=== PATIENT | male | born 1930 | race Caucasian/White ===

== ENCOUNTER 2017-05-26 12:59 | Outpatient (CLI) | payer MEDICARE ==
[2017-05-26 14:36] LABS: #Eosinphils 0.1 thou/uL (0.0-0.7); #Lymphocytes 1.5 thou/uL (1.20-3.40); #Monocytes 0.6 thou/uL (0.11-0.59); #Neutrophils 4.8 thou/uL (1.40-6.50); %Basophils 0.2 % (0.0-1.0); %Eosinophils 1.3 % (0.0-10.0); %Lymphocytes 21.4 % (21.0-51.0); %Monocytes 8.9 % (0.0-10.0); Hematocrit 42.1 % (42.0-52.0); Mean Platelet Volume 8.5 fL (7.4-10.4); Red Blood Cell (RBC) Count 4.48 mill/uL (4.70-6.10); White Blood Cell (WBC) Count 7.1 thou/uL (4.8-10.8)
[2017-05-26 15:08] LABS: Anion Gap 11 mmol/L (10-20); BUN (Urea Nitrogen) 40 mg/dL (8.4-25.7); Calc. Creatinine Clearance 0 mL/min (70-130); Calcium 9.5 mg/dL (7.8-10.44); Carbon Dioxide 29 mmol/L (23-31); Chloride 102 mmol/L (98-107); Estimated GFR-MDRD 21
== END 2017-05-26 13:00 | disposition home or self-care (01) ==
LOC: LABBT 12:59
PROVIDERS: ATTEND Orthopaedic Surgery Hand Surgery
DX: Z01.818 Encounter for other preprocedural examination (principal); T81.89XA Other complications of procedures, not elsewhere classified, initial encounter
CPT/HCPCS: 80048; 85025; 85652; 93005; 93010

== ENCOUNTER 2017-06-02 11:38 | Day surgery (SDC) | payer MEDICARE ==
[2017-05-26 13:12] VITALS: BMI 31.6
[2017-06-02] MEDS ORDERED: CEFAZOLIN/Water 2 GM/20 ML SYRINGE ONE (14:06)
[2017-06-02] MEDS ORDERED: Sodium Chloride 0.9% 10 ML ONE (15:11)
[2017-06-02] MEDS ORDERED: Thrombin 5000 UNITS/5 ML VIAL ONE (15:11)
[2017-06-02] MEDS ORDERED: Bupivacaine PF 0.5% 30 ML VIAL ONE (15:11)
[2017-06-02] MEDS ORDERED: Bacitracin Zinc Ointment 30 gm TUBE ONE (15:11)
[2017-06-02] MEDS ORDERED: Fentanyl 100 MCG/2 ML VIAL ONE (15:41)
[2017-06-02] MEDS ORDERED: PROPOFOL 200 MG/20 ML VIAL ONE (16:38)
[2017-06-02] MEDS ORDERED: Lidocaine 1% PF 5 ML VIAL ONE (16:38)
[2017-06-02] MEDS ORDERED: ePHEDrine/0.9% NaCl/PF SYRINGE 50 mg/10 ml ONE (16:38)
[2017-06-02] MEDS ORDERED: Ondansetron HCl/PF 4 MG/2 ML Vial ONE (16:38)
[2017-06-02] MEDS ORDERED: Glycopyrrolate 0.2 MG/ML 5 ML SYRINGE ONE (16:38)
--- NOTE | 2017-06-03 07:12 | OP ---
PREOPERATIVE DIAGNOSIS: Left index finger 2.0 cm wound, nonhealing, greater than 1 month old with hi story of circulatory dysfunction. POSTOPERATIVE DIAGNOSIS: Wound without infection, nonhealing 2 cm with a 1.5 mm wound separation and some necrotic fat in the interspace. PROCEDURES PERFORMED: Wound debridement, 03124 CPT; and wound closure of the hand or digit 2 cm or l ess, 32038 CPT. SPECIMEN: None. ESTIMATED BLOOD LOSS: 5 mL. TOURNIQUET TIME: None. No gross infection and bleeding edges were found both sides of the laceratio n at the end of procedure. SURGEON: Car Quintana M.D. ANESTHESIA: General LMA technique augmented by 8 mL, metacarpophalangeal block, double Marcaine, no epinephrine. INDICATIONS: The patient with nonhealing wound and history of circulatory dysfunction on chronic blo od thinner. DESCRIPTION OF THE PROCEDURE: The patient had been off the blood thinner for 4 days as described. Charo vazquez was counseled along with his for possible skin graft of this flap to be nonviable and explored . We then had the limb prepped and draped, did not inflate the tourniquet. We then performed system atic debridement of first proximal wound edges of our 1 mm and 0.5 mm resection of the distal wound e dges undermined both ulna slightly and then we had copious bleeding at all points, irrigated and bega n closure. A 4-0 nylon was used in a simple pattern with the palmar, proximal aspect brought to the palmar, distal aspect using the oversew technique. Then, once this was done, all cut tied and clippe d the wound with excellent approximation with excellent bleeding. We then covered the wound with ra itracin, Adaptic, 4 x 4, and a Keyona underneath Coban 2 inch. He left the operating room without com plications.
== END 2017-06-02 18:16 | disposition home or self-care (01) ==
LOC: SDC 11:38
PROVIDERS: ATTEND Orthopaedic Surgery Hand Surgery
PROC: 0JDK0ZZ Extraction of Left Hand Subcutaneous Tissue and Fascia, Open Approach (ICD-10-PCS; principal; 2017-06-02)
PROC: 0JQK0ZZ Repair Left Hand Subcutaneous Tissue and Fascia, Open Approach (ICD-10-PCS; 2017-06-02)
DX: S61.201A Unspecified open wound of left index finger without damage to nail, initial encounter (principal); E78.00 Pure hypercholesterolemia, unspecified; E11.42 Type 2 diabetes mellitus with diabetic polyneuropathy; Z88.2 Allergy status to sulfonamides; Z88.1 Allergy status to other antibiotic agents; Z91.041 Radiographic dye allergy status; Z91.048 Other nonmedicinal substance allergy status; Z90.79 Acquired absence of other genital organ(s); Z98.890 Other specified postprocedural states
CPT/HCPCS: A4216; J2001; J2405; J2704; J3010; J3490; S0020

== ENCOUNTER 2018-09-20 12:44 | Outpatient (CLI) | payer MEDICARE ==
--- NOTE | 2018-09-20 13:07 | RAD ---
EXAM: Two views chest PROVIDED CLINICAL HISTORY: Pacemaker lead malfunction. COMPARISON: 07/01/2018 FINDINGS: A triple lead left subclavian cardiac pacemaker device remains in place. Cardiac silhouette remains m ildly enlarged. The pulmonary vasculature is within normal limits. There is mild atelectasis at the left lung base. The lungs are otherwise clear. Vascular calcifications are again seen in the thoracic aorta. Degenerative changes are noted in the spine. IMPRESSION: 1. Stable chest without evidence of an acute cardiopulmonary process. 2. Mild cardiomegaly.
== END 2018-09-20 12:45 | disposition home or self-care (01) ==
LOC: RAD 12:44
PROVIDERS: ATTEND Internal Medicine Cardiovascular Disease
DX: T82.110A Breakdown (mechanical) of cardiac electrode, initial encounter (principal); I51.7 Cardiomegaly
CPT/HCPCS: 71046

== ENCOUNTER 2018-10-18 05:52 | Day surgery (SDC) | payer MEDICARE ==
[2018-10-17 14:24] VITALS: BMI 28.2
[2018-10-18] MEDS ORDERED: Lidocaine 1% (PF) 30 ML VIAL ONE (06:42)
[2018-10-18] MEDS ORDERED: CEFAZOLIN 1 GM VIAL ONE (06:42)
[2018-10-18] MEDS ORDERED: Gentamicin 80 MG/2 ML VIAL ONE (06:44)
--- NOTE | 2018-10-18 10:07 | RAD ---
EXAM: CHEST ONE VIEW HISTORY: Pacemaker lead malfunction COMPARISON: 09/20/2018 FINDINGS: A dual lead left subclavian cardiac pacemaker device remains in place. There is a third left subclavi an pacemaking lead which is not connected to the pacemaker device, but this is unchanged when compared to prior study as well as study on 07/01/2018, and this is likely related to revision of the pacemaking device when compared to prior study in 2014 where there were only 2 left subclavian leads present. The heart remains mildly enlarged. There is atelectasis at the left lung base. The lungs otherwise appear clear. Degenerative changes ar e again seen in the spine. Vascular calcifications are seen in the thoracic aorta. IMPRESSION: 1. No acute cardiopulmonary process. 2. Mild cardiomegaly. 3. Left subclavian cardiac pacemaking lead is noted in place which appears to represent a dual-lead l eft subclavian cardiac pacemaking device with a third left subclavian cardiac pacemaking lead noted in place which is not connected to the pacemaking device.
--- NOTE | 2018-10-18 16:48 | CCL ---
DATE OF PROCEDUR: 10/18/18 INDICATION FOR PROCEDURE: 88-year-old patient with a history of pacemaker insertion due to sick sinus syndrome with bradycardia . He was found to have on routine pacemaker evaluation, high thresholds on the ventricular lead and w as advised to undergo a pacemaker lead revision. He was taken to the cardiac clinical laboratory science professor where he was pr epped and draped in a sterile fashion. The old lead was removed and then a new lead was implanted usi ng a modified Seldinger technique without any difficulties or complications. The same pacemaker was u sed. The new lead was reattached to the pacemaker and the pacemaker with the new lead was placed back into the pocket. The old lead had been used during the procedure to ensure that there was at least s ome capture on the right ventricle. This also had high thresholds in the past. This was used with hig h outputs and was obtained and then afterwards was recapped and placed back into the pocket. IMPRESSION: Pacemaker lead malfunction with old lead removal and new lead implant. There were no difficulties or complications encountered.
--- NOTE | 2018-10-18 16:55 | EKG ---
Test Reason : LEAD REVISION Blood Pressure : / mmHG Vent. Rate : 060 BPM Atrial Rate : 059 BPM P-R Int : 000 ms QRS Dur : 202 ms QT Int : 494 ms P-R-T Axes : 000 -80 084 degrees QTc Int : 494 ms Electronic ventricular pacemaker When compared with ECG of 26-MAY-2017 14:06, Previous ECG has undetermined rhythm, needs review Confirmed by DR. Carmela EDMONDSON ([id number]) on 10/18/2018 4:54:37 PM Referred By: JUAN JOSE Confirmed By:DR. Carmela EDMONDSON
--- NOTE | 2018-10-19 03:04 | DIS ---
DATE OF ADMISSION: 10/18/2018 DATE OF DISCHARGE: 10/18/2018 DATE OF OUTPATIENT PROCEDURE: 10/18/2018. INDICATION FOR ADMISSION: He was not admitted, but seen as an outpatient. This is an 88-year-old patient who underwent pacemaker insertion in the past due to sick sinus syndrome, had been checked on a routine basis, was found to have increased thresholds on the RV lead, was advised to undergo lead revision. He was taken to the brush clearing laborer where this was performed today. OTHER DIAGNOSES: Include, intermittent atrial fibrillation, sick sinus syndrome, chronic kidney disease, venous insufficiency, noninsulin dependent diabetes type 2, hyperlipidemia, hypertension, sleep apnea, nephrolithiasis, peripheral neuropathy. He has had a history of pericarditis. He has a diastolic dysfunction, but has a normal left ventricular systolic function. He is status post pacemaker insertion. DISCHARGE DIAGNOSES: Include, intermittent atrial fibrillation, sick sinus syndrome, chronic kidney disease, venous insufficiency, noninsulin dependent diabetes type 2, hyperlipidemia, hypertension, sleep apnea, nephrolithiasis, peripheral neuropathy. He has had a history of pericarditis. He has a diastolic dysfunction, but has a normal left ventricular systolic function. He is status post pacemaker insertion. PROCEDURE IN HOSPITAL: Included right ventricular lead revision. The old lead was removed. The new lead was implanted. This the second right ventricular lead revision in this patient, but at least the last lead that was placed earlier this year in June was removed without difficulties or complications. The old lead was then again recapped. We had used this during the procedure in order to prevent severe bradycardia. The original old right ventricular lead also had increased thresholds in the past and had required high output. However, we were able to successfully use this during the procedure while we implanted a new right ventricular lead. DISCHARGE MEDICATIONS: Same as his admission medications: 1. Amlodipine 5 mg 1 and 1/2 tablets daily. 2. Hydrocodone/acetaminophen as needed. 3. Hydrochlorothiazide 25 mg twice daily. 4. Sertraline 100 mg daily. 5. Coreg 25 mg b.i.d. 6. CoQ10 100 mg tablets 1 daily. 7. Eliquis 2.5 mg b.i.d. 8. Flomax 0.4 mg 2 tablets daily half an hour following the same meal. 9. Hydralazine 25 mg four times a day. 10. Lasix 40 mg daily at least 4 to 5 days a week. 11. Align 4 mg capsules as directed orally. FOLLOWUP: Will be with me in the next 7-10 days for a wound check. HOSPITAL COURSE: As noted above, the patient presented for routine pacemaker evaluation, was found to have increased thresholds in the RV lead. He was advised to undergo right ventricular lead revision. This was performed today without difficulties or complications. The old lead was removed and a new lead was implanted without difficulties or complications. In the next 2-3 hours, if the patient remains stable and chest x-ray is unremarkable, the patient will be discharged to home. Job ID: [id number]
== END 2018-10-18 12:16 | disposition home or self-care (01) ==
LOC: CCL 05:52
PROVIDERS: ATTEND Internal Medicine Cardiovascular Disease
PROC: 02WA3MZ Revision of Cardiac Lead in Heart, Percutaneous Approach (ICD-10-PCS; principal; 2018-10-18)
PROC: 0JPT0PZ Removal of Cardiac Rhythm Related Device from Trunk Subcutaneous Tissue and Fascia, Open Approach (ICD-10-PCS; 2018-10-18)
PROC: 0JH604Z Insertion of Pacemaker, Single Chamber into Chest Subcutaneous Tissue and Fascia, Open Approach (ICD-10-PCS; 2018-10-18)
DX: T82.110A Breakdown (mechanical) of cardiac electrode, initial encounter (principal); I12.9 Hypertensive chronic kidney disease with stage 1 through stage 4 chronic kidney disease, or unspecified chronic kidney disease; N18.9 Chronic kidney disease, unspecified; E11.22 Type 2 diabetes mellitus with diabetic chronic kidney disease; I48.2 Chronic atrial fibrillation; E78.5 Hyperlipidemia, unspecified; G47.30 Sleep apnea, unspecified; E11.42 Type 2 diabetes mellitus with diabetic polyneuropathy; Z79.01 Long term (current) use of anticoagulants; Z79.899 Other long term (current) drug therapy; Z87.891 Personal history of nicotine dependence
CPT/HCPCS: 33217; 33235; 71045; 93005; 93010; C1898; J0690; J1580; J2001

== ENCOUNTER → 2018-12-06 | Day surgery (SDC) | payer MEDICARE ==
[2018-12-05 14:38] VITALS: BMI 28.7
[~2018-12-06] MED LIST: Lidocaine Viscous Sol 2% 15 ml UD Cup ONE; PROPOFOL 20 ML ONE
--- NOTE | 2018-12-06 15:05 | OP ---
CARDIOVERSION: DATE OF PROCEDURE: 12/06/18 INDICATION FOR PROCEDURE: This is an 88-year-old patient with atrial fibrillation who underwent a transesophageal echocardiogra m to rule out evidence of intracardiac thrombi, mass or vegetation. There were no evidence of abnorma lities noted on the echocardiogram except for the atrial fibrillation. After he had been given short acting propofol following the transesophageal echocardiogram, we procee ded with the electrical cardioversion using one attempt at 200 joules. He was successfully converted back to normal sinus rhythm. 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 At the end of the procedure, he had atrial pacing and ventricular pacing 100%. There were no difficulties or compli cations encountered during the procedure.
--- NOTE | 2018-12-06 15:06 | ECHO ---
DATE OF PROCEDURE: 12/06/18 INDICATION FOR PROCEDURE: This is an 88-year-old gentleman who has undergone pacemaker insertion. I do not believe he has undergone atrial fibrillation ablation in the past. He has been started on Amiodarone for antiarrhythmic medication and was advised to undergo a transesophageal echocardiogram to rule out evidence of intracardiac thrombi, mass, or vegetations in the left atrial appendage and then to proceed with electrical cardioversion of the atrial fibrillation back to normal sinus rhythm. He was taken to the recovery area where he underwent short acting propofol anesthesia and the transesophageal probe was easily passed down the distal esophagus. There was no evidence of left atrial or left atrial appendage thrombus. The ejection fraction is estimated at 50%. The left atrium was dilated at 4.8 cm. There was moderate mitral valve regurgitation. There was mild tricuspid valve regurgitation and also mild aortic valve regurgitation. pacemaker leads noted in the right chambers. There were no other abnormalities noted. IMPRESSION: Normal left ventricular systolic function. Left atrial dilatation. No evidence of left atrial or left atrial appendage thrombus. Moderate mitral valve regurgitation. Mild tricuspid valve regurgitation. Mild aortic valve regurgitation. MTDD
== END ==
LOC: CCL 06:37
PROVIDERS: ATTEND Internal Medicine Cardiovascular Disease
PROC: B245ZZ4 Ultrasonography of Left Heart, Transesophageal (ICD-10-PCS; principal; 2018-12-06)
PROC: 5A2204Z Restoration of Cardiac Rhythm, Single (ICD-10-PCS; 2018-12-06)
DX: I48.0 Paroxysmal atrial fibrillation (principal); I08.3 Combined rheumatic disorders of mitral, aortic and tricuspid valves; I12.9 Hypertensive chronic kidney disease with stage 1 through stage 4 chronic kidney disease, or unspecified chronic kidney disease; E11.22 Type 2 diabetes mellitus with diabetic chronic kidney disease; N18.9 Chronic kidney disease, unspecified; E11.42 Type 2 diabetes mellitus with diabetic polyneuropathy; E78.5 Hyperlipidemia, unspecified; T82.110A Breakdown (mechanical) of cardiac electrode, initial encounter; R60.0 Localized edema; G47.30 Sleep apnea, unspecified; Z95.0 Presence of cardiac pacemaker; Z87.891 Personal history of nicotine dependence; Z91.048 Other nonmedicinal substance allergy status; Z88.2 Allergy status to sulfonamides; Z88.1 Allergy status to other antibiotic agents; Z91.041 Radiographic dye allergy status; Z79.01 Long term (current) use of anticoagulants; Z79.899 Other long term (current) drug therapy
CPT/HCPCS: 92960; 93005; 93010; 93312; J2704

== ENCOUNTER 2019-02-06 11:46 | Inpatient (IN) | payer MEDICARE ==
[2019-02-06 13:23] LABS: #Basophils 0.1 thou/uL (0.0-0.2); #Eosinphils 0.8 thou/uL (0.0-0.7); #Lymphocytes 1.7 thou/uL (1.20-3.40); #Neutrophils 5.3 thou/uL (1.40-6.50); %Lymphocytes 19.1 % (21.0-51.0); %Monocytes 11.3 % (0.0-10.0); %Neutrophils 59.6 % (42.0-75.0); Hemoglobin 13.1 g/dL (14.0-18.0); Mean Corpuscular HGB CONC 35.4 g/dL (32.0-36.0); Mean Corpuscular Hemoglobin 33.1 pg (27.0-31.0); Mean Corpuscular Volume 93.3 fL (78.0-98.0); Mean Platelet Volume 7.8 fL (7.4-10.4); Platelet Count 142 thou/uL (130-400); RBC Distribution Width 12.2 % (11.5-14.5); Red Blood Cell (RBC) Count 3.97 mill/uL (4.70-6.10); White Blood Cell (WBC) Count 8.9 thou/uL (4.8-10.8)
[2019-02-06 13:43] LABS: ALT (SGPT) 24 U/L (8-55); AST (SGOT) 22 U/L (5-34); Albumin 4.6 g/dL (3.4-4.8); Alkaline Phosphatase 53 U/L (40-150); Anion Gap 17 mmol/L (10-20); BUN (Urea Nitrogen) 69 mg/dL (8.4-25.7); Bilirubin, Total 0.4 mg/dL (0.2-1.2); Calc. Creatinine Clearance 13 mL/min (70-130); Carbon Dioxide 27 mmol/L (23-31); Chloride 101 mmol/L (98-107); Estimated GFR-MDRD 12; Globulin 3.3 g/dL (2.4-3.5); Glucose 85 mg/dL (83-110); Magnesium 2.5 mg/dL (1.6-2.6); Phosphorus 4.5 mg/dL (2.3-4.7); Potassium 3.2 mmol/L (3.5-5.1); Protein, Total 7.9 g/dL (5.8-8.1); Sodium 142 mmol/L (136-145)
[2019-02-06 13:56] LABS: Bacteria/HPF None Seen HPF (None Seen); Bilirubin Negative (Negative); Blood, Urine Trace (Negative); Clarity Clear (Clear); Glucose, Urine (Dipstick) 50 mg/dL (Negative); Leukocyte Negative Leu/uL (Negative); Nitrite Negative (Negative); Protein, Urine (Dipstick) 70 mg/dL (Neg-Trace); RBC/HPF 0-3 HPF (0-3); Squamous Epithelial None Seen HPF (0-3); Urobilinogen Normal mg/dL (Less than 2); WBC/HPF 0-3 HPF (0-3)
[2019-02-06 14:01] LABS: HIV (1/2) Antibody/Antigen Non-Reactive (NonReactive); HIV 1/2 INDEX 0.07 S/CO (<1.00); Hep C IgG Ab Non-Reactive (NonReactive); Hep C Index 0.11 S/CO (0-0.79)
[2019-02-06] MEDS ORDERED: [UNRECOGNIZED DRUG - REMARK] PO PRN (17:05)
[2019-02-06] MEDS ORDERED: CEFAZOLIN 2 GM in Premix Bag 1 BAG IVPB SCH (17:15)
--- NOTE | 2019-02-06 19:56 | ULT ---
ULTRASOUND VESSEL MAPPING FOR DIALYSIS ACCESS: History: ESRD VEIN MAPPING OF UPPER EXTREMITIES FOR DIALYSIS ACCESS: RIGHT UPPER EXTREMITY BRACHIAL ARTERY: 5.5 mm RADIAL ARTERY: 2.1 mm ULNAR ARTERY: 1.9 mm CEPHALIC VEIN Proximal Arm: 2.1 mm Mid Arm: 1.5 mm Distal Arm: 1.1 mm Antecubital Fossa: 1.4 mm Proximal Forearm: 1.6 mm Mid Forearm: 1.1 mm Distal Forearm: 2.1 mm BASILIC VEIN Proximal Arm: 2.3 mm Mid Arm: 2.1 mm Distal Arm: 1.2 mm Antecubital Fossa: 1.3 mm Proximal Forearm: 1.1 mm Mid Forearm: 0.9 mm Distal Forearm: 1.1 mm LEFT UPPER EXTREMITY BRACHIAL ARTERY: 5.2 mm RADIAL ARTERY: 2.3 mm ULNAR ARTERY: 1.5 mm CEPHALIC VEIN Proximal Arm: 2.4 mm Mid Arm: 2.6 mm Distal Arm: 2.0 mm Antecubital Fossa: 2.2 mm Proximal Forearm: 1.3 mm Mid Forearm: 2.0 mm Distal Forearm: 0.6 mm BASILIC VEIN Proximal Arm: 4.8 mm Mid Arm: 1.7 mm Distal Arm: 2.2 mm Antecubital Fossa: 1.1 mm Proximal Forearm: 1.2 mm Mid Forearm: 1.3 mm Distal Forearm: 1.2 mm POS: RRE
[2019-02-06] MEDS: Ubidecarenone 50 MG CAP PO SCH (20:29)
[2019-02-06] MEDS: Amlodipine 5 MG TAB PO SCH (20:30)
[2019-02-06] MEDS: Tamsulosin HCl 0.4 MG CAP PO SCH (20:30)
[2019-02-06] MEDS: Carvedilol 25 MG TAB PO SCH (20:30)
[2019-02-06] MEDS ORDERED: Tuberculin PPD 0.1 ML VIAL I-DERMAL SCH (20:45)
[2019-02-06] MEDS: (Inulin/Chromium Picolinate [Fiber Gummies] 1 EACH) PO SCH (21:18)
--- NOTE | 2019-02-06 23:01 | CON ---
DATE OF CONSULTATION: 02/06/2019 PRIMARY CARE PROVIDER: Dr. Belén Hubbard. PRIMARY SUPERVISOR ROLLING ROOM: Dr. Stanley Alejandro. CHIEF COMPLAINT: End-stage renal disease. REASON FOR CONSULTATION: Medical management and end-stage renal disease. HISTORY OF PRESENT ILLNESS: This is an 89-year-old male, who was referred to [facility] Emergency Department by his primary assembly line worker Dr. Alejandro for initiation of hemodialysis in the context of chronic kidney disease stage 5. The patient with longstanding chronic kidney disease, apparently worsening over the last several months, necessitating initiation of hemodialysis. The patient states he has been followed consistently however with medication adjustment and serial monitoring, the patient's renal function continued to decline. The patient does state that he underwent a transesophageal echocardiogram and electrical cardioversion in December 2018 for recurrent atrial fibrillation. The patient denies any specific chest pain, shortness of breath, or dizziness, but does state some increased edema of his lower extremities and abdomen area. PAST MEDICAL HISTORY: 1. Sick sinus syndrome, status post pacemaker placement. 2. Chronic atrial fibrillation, status post cardioversion on 12/2018 on chronic anticoagulation with Eliquis. 3. Chronic kidney disease stage 5. 4. Bilateral lower extremity venous insufficiency. 5. Hyperlipidemia. 6. Hypertension. 7. Nephrolithiasis. 8. Peripheral neuropathy. 9. History of pericarditis. 10. History of liver abscess status post incision and drainage. 11. Diastolic dysfunction with preserved ejection fraction of 50% to 55% percent. PAST SURGICAL HISTORY: 1. Status post bilateral knee replacement and associated left meniscal repair. 2. Status post thoracentesis. 3. Status post transurethral resection of the prostate. 4. Status post pacemaker and AICD placement. 5. Status post left thumb amputation. 6. Status post hernia repair. CURRENT MEDICATIONS: 1. Amlodipine 10 mg p.o. daily. 2. HCTZ 25 mg p.o. b.i.d. 3. Sertraline 100 mg daily. 4. Coreg 25 mg p.o. b.i.d. 5. Coenzyme Q10 100 mg p.o. daily. 6. Eliquis 2.5 mg p.o. b.i.d. 7. Flomax 0.4 mg 2 capsules p.o. daily. 8. Hydralazine 25 mg p.o. q.i.d. 9. Lasix 50 mg p.o. daily. 10. Align 4 mg daily. ALLERGIES: BACTRIM. FAMILY HISTORY: No inheritable diseases per patient report. SOCIAL HISTORY: The patient is . Resides in the [place], [place] area. Primary caregiver for his . Functional of all activities of daily living. No current alcohol, tobacco, or illicit drug use. REVIEW OF SYSTEMS: CONSTITUTIONAL: Negative for weight loss or gain, ability to conduct usual activities. SKIN: Negative for rash, itching. EYES: Negative for double vision, pain. ENT/MOUTH: Negative for nose bleeding, neck stiffness, pain, tenderness. CARDIOVASCULAR: Negative for palpitations, dyspnea on exertion, orthopnea. RESPIRATORY: Negative for shortness of breath, wheezing, cough, hemoptysis, fever or night sweats. GASTROINTESTINAL: Negative for poor appetite, abdominal pain, heartburn, nausea, vomiting, constipation, or diarrhea. GENITOURINARY: Negative for urgency, frequency, dysuria, nocturia. MUSCULOSKELETAL: Negative for pain, swelling. NEUROLOGIC/PSYCHIATRIC: Negative for anxiety, depression. ALLERGY/IMMUNOLOGIC: Negative for skin rash, bleeding tendency. Otherwise negative except as stated per HPI. PHYSICAL EXAMINATION: VITAL SIGNS: On admission, blood pressure 157/76, pulse 63, respiratory rate 20, temperature 97.5 degrees Fahrenheit, O2 saturation 99% on room air. GENERAL APPEARANCE: This is an 89-year-old male, alert and oriented x3, pleasant, responsive, in no acute distress. HEENT: Pupils are equal, round, reactive to light and accommodation. Extraocular muscles are intact. No scleral icterus. No conjunctival injection. Nares are patent. OP is clear. Teeth in good repair. NECK: Supple. No cervical adenopathy. No thyromegaly. No carotid bruits. No JVD appreciated. Cervical spine with full active and passive range of motion. No meningeal signs noted. CHEST: Lungs are clear to auscultation bilaterally. CARDIOVASCULAR: S1, S2 with 1 to 2/6 systolic ejection murmur in the left upper sternal border. ABDOMEN: Rounded, soft, nontender, and nondistended. Bowel sounds are positive in all 4 quadrants. There is no hepatosplenomegaly. No abdominal bruits, no rebound or guarding appreciated. EXTREMITIES: Warm and dry with fair turgor. Pitting edema to the lower extremities bilaterally. Pulses palpable distally at the dorsalis pedis, posterior tibial, and popliteal arteries bilaterally. Capillary refill less than 2 seconds. NEUROLOGIC: Cranial nerves 2 through 12 are grossly intact. No focal or lateralizing signs appreciated. PERTINENT LABORATORY AND X-RAY DATA: Sodium 142, potassium 3.2, chloride 101, CO2 of 27, anion gap 17, BUN 69, creatinine 4.69, estimated GFR of 12, glucose 85, calcium 10.0, magnesium 2.5. LFTs within normal limits. CBC showed a white blood cell count of 8.9, hemoglobin 13, hematocrit 37, platelet count 142 with normal differential. Urinalysis showed trace blood and protein. Hepatitis C antibody nonreactive. HIV 1 and 2 antigen antibody nonreactive 02/06/2019. 2D transthoracic echocardiogram dated 12/06/2018, showed ejection fraction of 50%. No evidence for left atrial thrombus. Moderate left atrial enlargement. Moderate mitral and tricuspid valve regurgitation. EKG dated 02/06/2019, by my interpretation shows AV sequential dual chamber pacemaker with heart rates in the 60s. ASSESSMENT/PLAN: 1. End-stage renal disease. The patient will be admitted for initiation of hemodialysis. The patient to have a tunneled hemodialysis catheter placed per General Surgery. Nephrology Service for timing and initiation of hemodialysis. 2. Hypokalemia. We will continue serial potassium monitoring. Replace as clinically indicated. 3. Chronic atrial fibrillation, status post pacemaker placement. Stable currently. Atrioventricular sequential pacing noted on EKG. Continue Eliquis 2.5 mg b.i.d. 4. Anemia of chronic kidney disease. Stable currently. Continue serial hemoglobin and hematocrit monitoring. No current evidence to suggest acute blood loss. 5. Chronic anticoagulation. Continue Eliquis 2.5 mg b.i.d. 6. Prophylaxis. SCDs while in bed. Pepcid 20 mg p.o. b.i.d. CODE STATUS: Full. Surrogate medical decision maker is patient's daughter. Thank you for the consult. We will continue to follow with primary service. Job ID: [id number]
[2019-02-07] MEDS ORDERED: diphenhydrAMINE 25 MG CAP PO SCH (00:45)
[2019-02-07] MEDS: Carvedilol 25 MG TAB PO SCH ×2 (06:05→22:42)
--- NOTE | 2019-02-07 07:31 | CON ---
DATE OF CONSULTATION: HISTORY OF PRESENT ILLNESS: Trey James is an 89-year-old male, independently ambulatory and cares for his own affairs, has chronic kidney disease, followed by Dr. Stanley Alejandro. This has progressed to the point that he needs to initiate dialysis. He has been on Eliquis, held that since Wednesday, 2 days ago. He ate breakfast this morning. Ultrasound vein mapping of both arms has been ordered and is pending. The patient has a history of diabetes and hypertension, although does not take any medications for his diabetes at this time as it is diet controlled. 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 He has been admitted by Dr. Alejandro, waiting to be seen by the hospitalist and plan is to place a hemodialysis catheter in a possible central line tomorrow (poor IV access). The patient has a pacemaker in the left subclavian vein for atrial fibrillation. He is followed by Dr. Jeremiah Naranjo. He has not had a prior history of MT or coronary artery disease. ALLERGIES: ADHESIVES, SULFA, IODONATED CONTRAST IV DYE. MEDICATIONS: Medications at home; supplement for restless legs syndrome, inulin/chromium picolinate, curcumin 1330 mg daily, Align 4 mg daily, testosterone 0.4 mg IM every 7 days, CoQ10, hydralazine p.r.n., Prevagen daily, hydrocodone p.r.n. pain, sertraline 100 mg daily, Eliquis b.i.d., bupropion 100 mg daily, amlodipine 1 tablet b.i.d., Flomax 0.4 mg b.i.d., hydrochlorothiazide 25 mg daily, Klor-Con 10 of 10 mEq daily, carvedilol 25 mg b.i.d., furosemide 40 mg daily, amiodarone 1 tablet daily. PAST SURGICAL HISTORY: The patient has a pacemaker, followed by Dr. Naranjo, has been recently re-evaluated and revised; bilateral total knee replacements by Dr. Contreras; bilateral inguinal hernia repairs; left thumb partial amputation. PAST MEDICAL HISTORY: Diabetes mellitus; hypertension; atrial fibrillation, on anticoagulation; pacemaker; sick sinus syndrome. He has had colonoscopies in the past, last one several years ago. Echocardiogram, 12/06/2018; 50% EF, moderate mitral regurgitation, mild aortic and [id number] tricuspid regurgitation. LABORATORY DATA: White count 8.9, hemoglobin 13. Sodium 142, potassium 3.2, BUN 69, creatinine is 4.69, GFR 12. PHYSICAL EXAMINATION: VITAL SIGNS: Height 5 feet 6 inches, 182 pounds, 25 of BMI, temperature 97.5, heart rate 63, blood pressure 157/76. HEAD, EARS, EYES, NOSE, AND THROAT: Unremarkable. LUNGS: Clear to auscultation. CARDIAC: Regular rate and rhythm without murmur or gallop. ABDOMEN: Soft and nontender. No masses. EXTREMITIES: Unremarkable. Left chest pacemaker. No visibly demonstrative veins in the antecubital area. Good radial and ulnar pulses. ASSESSMENT AND PLAN: 1. End-stage renal disease. Plan placement of hemodialysis catheter, possible central line tomorrow afternoon. N.p.o. after midnight. Hold his Eliquis as he has held in for 48 hours already. Plan placement of hemodialysis catheter, central line, and left right arm arteriovenous fistula pending ultrasound vein mapping. He is right-handed, but he has a pacemaker to the left subclavian vein. His right dominant arm is the most likely site vein mapping. 2. Diabetes mellitus, noninsulin dependent, now diet controlled. 3. Hypertension. 4. Atrial fibrillation, on anticoagulation, held for the last 2 days. Job ID: [id number]
[2019-02-07] MEDS ORDERED: CURCUMIN PO SCH (09:00)
[2019-02-07] MEDS: Hydrochlorothiazide 25 MG TAB PO SCH (09:02)
[2019-02-07] MEDS: Potassium Chloride 10 MEQ TAB PO SCH (09:02)
[2019-02-07] MEDS: Furosemide 40 MG TAB PO SCH (09:02)
[2019-02-07] MEDS: Tamsulosin HCl 0.4 MG CAP PO SCH ×2 (09:02→22:42)
[2019-02-07] MEDS: Bupropion 100 MG SR TAB PO SCH (09:02)
[2019-02-07] MEDS: Amiodarone 200 MG TAB PO SCH (09:03)
[2019-02-07] MEDS: Amlodipine 5 MG TAB PO SCH ×2 (09:03→22:41)
[2019-02-07] MEDS: (Inulin/Chromium Picolinate [Fiber Gummies] 1 EACH) PO SCH ×2 (09:08→22:29)
[2019-02-07] MEDS: (Bifidobacterium Infantis [Align] 4 MG) PO SCH (09:09)
[2019-02-07] MEDS: (Prevagen 1 TAB) PO SCH (09:09)
--- NOTE | 2019-02-07 09:46 | PDOC.HOSPP ---
- Subjective Encounter Date: 02/07/19 Encounter Time: 09:45 Subjective: f/u ESRD with plans for initiating HD this hospital stay. No new complaints, CP , SOB. - Objective Vital Signs & Weight: Vital Signs (12 hours) Temp Pulse Resp BP Pulse Ox 02/07/19 09:03 67 02/07/19 08:13 97.8 F 67 18 150/80 H 98 02/07/19 03:06 98.1 F 77 16 118/70 98 02/06/19 23:20 98.2 F 70 16 136/69 98 Weight Weight 182 lb 15.986 oz I&O: 02/06/19 02/07/19 02/08/19 06:59 06:59 06:59 Intake Total 690 Balance 690 Result Diagrams: 02/06/19 13:08 02/06/19 13:08 Additional Labs: Accuchecks 02/06/19 17:08 POC Glucose 115 H Hospitalist ROS - Medication Medications: Active Medications Generic Name Dose Route Start Last Admin Trade Name Freq PRN Reason Stop Dose Admin Amiodarone HCl 200 mg 02/07/19 09:00 02/07/19 09:03 Cordarone PO 200 mg DAILY HARRISON Administration Amlodipine Besylate 5 mg 02/06/19 21:00 02/07/19 09:03 Norvasc PO 5 mg BID HARRISON Administration Bupropion HCl 100 mg 02/07/19 09:00 02/07/19 09:02 Wellbutrin Sr PO 100 mg DAILY HARRISON Administration Carvedilol 25 mg 02/06/19 21:00 02/07/19 06:05 Coreg PO 25 mg BID HARRISON Administration Coenzyme Q10 100 mg 02/06/19 21:00 02/06/19 20:29 Coenzyme Q10 PO 100 mg QPM HARRISON Administration Furosemide 40 mg 02/07/19 09:00 02/07/19 09:02 Lasix PO 40 mg DAILY HARRISON Administration Hydrochlorothiazide 25 mg 02/07/19 09:00 02/07/19 09:02 Hydrochlorothiazide PO 25 mg DAILY HARRISON Administration (Bifidobacterium 0 mg 02/07/19 09:00 02/07/19 09:09 Infantis [Align] 4 PO 1 mg Mg) DAILY HARRISON Administration (Inulin/Chromium 1 each 02/06/19 21:00 02/07/19 09:08 Picolinate [Fiber PO 1 each Gummies] 1 Each) BID HARRISON Administration (Prevagen 1 Tab) 1 tab 02/07/19 09:00 02/07/19 09:09 PO 1 tab DAILY HARRISON Administration Potassium Chloride 10 meq 02/07/19 09:00 02/07/19 09:02 Klor-Con 10 PO 10 meq DAILY HARRISON Administration Sertraline HCl 100 mg 02/07/19 09:00 02/07/19 09:03 Zoloft PO 100 mg DAILY HARRISON Administration Tamsulosin HCl 0.4 mg 02/06/19 21:00 02/07/19 09:02 Flomax PO 0.4 mg BID HARRISON Administration - Exam General Appearance: NAD, awake alert Eye: PERRL, anicteric sclera ENT: normocephalic atraumatic, no oropharyngeal lesions Neck: supple, symmetric, no JVD, no thyromegaly, no lymphadenopathy Heart: RRR, no gallops, no rubs, normal peripheral pulses Heart - other findings: L upper chest wall with PM in place Respiratory: CTAB, no wheezes, no rales, no ronchi, normal chest expansion Gastrointestinal: soft, non-tender, non-distended, normal bowel sounds, no palpable masses Extremities: no cyanosis, no clubbing Skin: normal turgor, no lesions Neurological: CN's grossly intact, no focal deficits, no new deficit Musculoskeletal: normal tone, normal strength Psychiatric: normal affect, normal behavior, A&O x 3 Hosp A/P (1) ESRD (end stage renal disease) Code(s): N18.6 - END STAGE RENAL DISEASE Status: Chronic Plan: Plan for initiation of HD this hospital stay, HD catheter/AV fistula placement pending, Nephrology following (2) Chronic atrial fibrillation Code(s): I48.2 - CHRONIC ATRIAL FIBRILLATION Status: Chronic Plan: Stable overall, PM in place, anticoagulation held (3) Chronic anticoagulation Code(s): Z79.01 - NURSING HOME (CURRENT) USE OF ANTICOAGULANTS Status: Acute Plan: Eliquis on hold pending HD catheter placement (4) Hypokalemia Code(s): E87.6 - HYPOKALEMIA Status: Acute Plan: Mild, will allow mild hypokalemia given ESRD, await initiation of HD and monitor serially - Plan continue antibiotics, social service assistant, DVT proph w/SCDs Stable currently Plan for HD catheter/AV fistula placement Continue Norvasc, Amiodarone, Coreg Eliquis on hold CM for coordination of outpt HD
[2019-02-07 13:44] LABS: HBSAB Concentration 1.25 mIU/mL; HBSAg Index 0.14 S/CO (0-0.99); Hep B Core Total Ab Non-Reactive (NonReactive); Hep B Core Total Index 0.08 S/CO (0-0.79); Hep B Surf AB Non-Reactive (NonReactive); Hep B Surf Ag Non-Reactive S/CO (NonReactive); Hep C IgG Ab Non-Reactive (NonReactive); Hep C Index 0.11 S/CO (0-0.79)
[2019-02-07] MEDS ORDERED: Midazolam HCl 2 mg/2 ml Vial ONE (13:55)
[2019-02-07] MEDS ORDERED: Fentanyl 100 MCG/2 ML VIAL ONE ×2 (13:55→15:51)
[2019-02-07] MEDS ORDERED: Heparin 10,000 UNITS/1 ML VIAL ONE (15:49)
[2019-02-07] MEDS ORDERED: Bupivacaine HCl 0.5%/Epinephrine 1:200,000/PF 30 ml Vial ONE ×2 (15:49→17:28)
[2019-02-07] MEDS ORDERED: Heparin 5,000 UNITS/ML VIAL ONE (15:49)
[2019-02-07] MEDS ORDERED: Sodium Chloride 0.9% 10 ML ONE (15:49)
[2019-02-07] MEDS ORDERED: Lidocaine 2% PF 5 ML VIAL ONE (15:49)
[2019-02-07] MEDS ORDERED: Ioversol 68 % 50 ML VIAL ONE (15:49)
[2019-02-07] MEDS ORDERED: PROPOFOL 20 ML ONE (15:51)
[2019-02-07] MEDS ORDERED: Acetaminophen 500 MG TAB PO PRN (16:45)
[2019-02-07] MEDS ORDERED: PHENYLEPHRINE-NS 100 MCG/ML 10 ML SYRINGE ONE (17:59)
[2019-02-07] MEDS ORDERED: Heparin 10,000 UNITS/ 10 ML VIAL ONE (17:59)
[2019-02-07] MEDS ORDERED: Protamine Sulfate 50 MG/5 ML VIAL ONE (18:14)
--- NOTE | 2019-02-07 19:21 | RAD ---
CHEST ONE VIEW: 02/07/19 INDICATION: History of central line placement. COMPARISON: Prior exam dated 10/18/18. FINDINGS: There is a right IJ dialysis catheter in place. There is a multilead pacemaker in place. There is a left central venous catheter projecting up to the level of the brachiocephalic vein. There is mild ca rdiomegaly. No pleural effusion or pneumothorax evident. IMPRESSION: 1. Central venous catheters as above. No pneumothorax. 2. Mild cardiomegaly. POS: ODALIS
[2019-02-07] MEDS ORDERED: Ondansetron ODT 4 MG TAB PO PRN (22:03)
[2019-02-07] MEDS: HYDROcodone/Acetaminophen 10/325 mg Tablet PO PRN (22:08)
[2019-02-07] MEDS: Ubidecarenone 50 MG CAP PO SCH (22:42)
[2019-02-07] MEDS ORDERED: Gabapentin 300 MG CAP PO SCH (23:00)
[2019-02-08] MEDS: traMADol HCl 50 MG TAB PO PRN (05:52)
--- NOTE | 2019-02-08 08:35 | OP ---
DATE OF PROCEDURE: 02/07/2019 PREOPERATIVE DIAGNOSIS: End-stage renal disease, initiating dialysis. POSTOPERATIVE DIAGNOSIS: End-stage renal disease, initiating dialysis with inadequate vein for fistula. PROCEDURES PERFORMED: Right IJ cuffed tunneled hemodialysis catheter, left IJ central line fluoroscopy and ultrasound used. Exploration of right forearm noting inadequate veins. Right upper arm dialysis graft 4T07, tapered PTFE graft, brachial artery above the antecubital fossa, axillary vein, which is of excellent caliber. ANESTHESIA: Regional, TIVA, local 0.5% Marcaine with epinephrine 30 mL mixed with 2% Xylocaine 10 mL. DESCRIPTION OF PROCEDURE: The patient was taken to the operating room where under intravenous sedation and regional anesthesia, neck, chest, and right upper extremity were prepared with ChloraPrep and draped in routine fashion. Local anesthetic was infiltrated in the skin and subcutaneous tissue about all the port sites with placement of central lines. Using ultrasound guidance, the right and left internal jugular veins were cannulated with trocar catheter and J-wire was threaded, trocar and catheter removed. Skin site was enlarged sharply. At the J-wire entry point, stab incision was made over the right chest. Seldinger technique used to place triple-lumen catheter on the left. It was secured in place with 3-0 nylon suture. Sterile dressings applied. Each port aspirated blood and flushed with saline solution. Using the tunneling device, a pre-curved [employer] cuffed-tunneled hemodialysis catheter tunneled between 2 incisions, placed the fabric cuff beneath the skin exit site over the right chest and catheter secured with 2 interrupted suture of 3-0 nylon, sterile dressing applied. Small and medium-sized dilators were placed over the J-wire and the internal jugular vein removed. Dilator and Peel-Away sheath placed over the J-wire in superior vena cava and dilator and J-wire were removed. Catheter placed over the Peel-Away sheath and Peel-Away sheath removed. Platysma was approximated with 4-0 Monocryl, skin with subdermal 4-0 Monocryl and [place] glue and sterile dressings applied. Each port of the hemodialysis catheter aspirated blood, flushed with saline solution and heparinized with saline solution, 1000 units heparin per mL indicating volume in the port. Fluoroscopic images revealed good line placement. The patient tolerated the procedure well. Right upper extremity had been prepared with ChloraPrep and draped in routine fashion. I made an incision in the proximal volar forearm below the antecubital fossa longitudinally, carried down through skin and subcutaneous tissue and then veins were inadequate and this was closed by approximating subcutaneous tissues with 3-0 Monocryl, skin with subdermal 4-0 Monocryl, and [place] glue applied. Incision was made just above the antecubital fossa on the right upper extremity longitudinally identifying the brachial artery dissecting it free. Incision made in the right axilla, carried down through skin and subcutaneous tissue, deep fascia dissecting a very large axillary vein, controlling it proximally and distally with silastic Rivera loops. Latisha-Wick tunneler used to create a tunnel and the Latisha-Wick tunneler was used to tunnel the graft placing the 4 mm end near the brachial artery at the antecubital fossa. The patient then given 6000 units of heparin intravenously. After adequate circulation time, the brachial artery was clamped proximally and distally and longitudinal arteriotomy was made sharply, elongated with Rivera scissors, the graft tailored to length for 2.5 cm anastomosis, cobra-head type, 4 mm into the graft, anastomosed to the side of the brachial artery with continuous suture of 6-0 Prolene. Vascular clamps were released. Excellent arterial flow in the graft and vascular clamp was placed across the graft and then attention turned to the axilla. The axillary vein was controlled proximally and distally with Rivera silastic vessel loops. Longitudinal venotomy made sharply, elongated for a 3 cm venotomy, held open with 6-0 Prolene stay sutures. The graft tailored to length for cobra-head type anastomosis, ends graft to side axillary vein with continuous suture of 6-0 Prolene, completing the anastomosis, opening the arterial inflow flush axillary outflow. Good hemostasis noted and obtained with 6-0 Prolene. The patient was given 50 mg of protamine intravenously. Subcutaneous tissue was approximated with 3-0 Monocryl, skin with subdermal 4-0 Monocryl and [place] glue applied. The patient tolerated the procedure well. Job ID: [id number]
[2019-02-08] MEDS ORDERED: READ PPD TEST SITE PO SCH ×2 (09:00→20:45)
--- NOTE | 2019-02-08 09:35 | PRG ---
DATE OF SERVICE: 02/08/2019 Trey Felipe is doing well today. He had a right upper arm dialysis graft. Surgical wounds look good. He has good thrill and bruit in the graft. His hemodialysis catheter is working well. He has initiated dialysis. Central line was placed for use in this hospitalization, it should be removed prior to discharge. Overall, the patient is doing well with good right hand function. We would continue to use his hemodialysis catheter for dialysis access. He should see me in the office in 3 weeks to evaluate his access and guide the dialysis center and transitioning to a dialysis graft access. I will see him as needed this hospitalization. He should follow up with me in my office in 3 to 4 weeks. Job ID: [id number]
[2019-02-08] MEDS ORDERED: Heparin 10,000 UNITS/ 10 ML VIAL ONE (10:00)
[2019-02-08] MEDS: Bupropion 100 MG SR TAB PO SCH (10:44)
[2019-02-08] MEDS: Hydrochlorothiazide 25 MG TAB PO SCH (10:44)
[2019-02-08] MEDS: Carvedilol 25 MG TAB PO SCH ×2 (10:44→20:39)
[2019-02-08] MEDS: Furosemide 40 MG TAB PO SCH ×2 (10:44→10:56)
[2019-02-08] MEDS: Tamsulosin HCl 0.4 MG CAP PO SCH ×2 (10:44→20:41)
[2019-02-08] MEDS: Amlodipine 5 MG TAB PO SCH ×2 (10:45→20:39)
[2019-02-08] MEDS: Potassium Chloride 10 MEQ TAB PO SCH ×2 (10:45→10:57)
[2019-02-08] MEDS: Amiodarone 200 MG TAB PO SCH (10:45)
[2019-02-08] MEDS: (Bifidobacterium Infantis [Align] 4 MG) PO SCH (10:48)
[2019-02-08] MEDS: (Inulin/Chromium Picolinate [Fiber Gummies] 1 EACH) PO SCH ×2 (10:49→22:53)
[2019-02-08] MEDS: (Prevagen 1 TAB) PO SCH (10:49)
--- NOTE | 2019-02-08 14:05 | PDOC.HOSPP ---
- Subjective Encounter Date: 02/08/19 Encounter Time: 14:00 Subjective: f/u for ESRD s/p RUE AV fistula placement and tunneled HD catheter. Initiated on HD. - Objective Vital Signs & Weight: Vital Signs (12 hours) Temp Pulse Resp BP Pulse Ox 02/08/19 11:37 98.0 F 78 18 95/58 L 94 L 02/08/19 10:45 76 02/08/19 10:05 97.6 F 76 18 130/66 97 02/08/19 04:20 98.3 F 62 16 102/59 L 94 L Weight Admit Weight 182 lb 15.986 oz Weight 182 lb 15.986 oz I&O: 02/07/19 02/08/19 02/09/19 06:59 06:59 06:59 Intake Total 690 0 500 Balance 690 0 500 Result Diagrams: 02/06/19 13:08 02/06/19 13:08 Radiology Reviewed by me: Yes (PCXR - lines in appropriate position, no PTX) Hospitalist ROS - Medication Medications: Active Medications Generic Name Dose Route Start Last Admin Trade Name Freq PRN Reason Stop Dose Admin Hydrocodone Bitart/Acetaminophen 1 tab 02/06/19 17:05 02/07/19 22:08 [place] 10/325 PO 1 tab BID PRN Administration Pain Amiodarone HCl 200 mg 02/07/19 09:00 02/08/19 10:45 Cordarone PO 200 mg DAILY HARRISON Administration Amlodipine Besylate 5 mg 02/06/19 21:00 02/08/19 10:45 Norvasc PO 5 mg BID HARRISON Administration Bupropion HCl 100 mg 02/07/19 09:00 02/08/19 10:44 Wellbutrin Sr PO 100 mg DAILY HARRISON Administration Carvedilol 25 mg 02/06/19 21:00 02/08/19 10:44 Coreg PO 25 mg BID HARRISON Administration Coenzyme Q10 100 mg 02/06/19 21:00 02/07/19 22:42 Coenzyme Q10 PO Not Given QPM HARRISON Furosemide 40 mg 02/07/19 09:00 02/08/19 10:56 Lasix PO Not Given DAILY HARRISON Hydrochlorothiazide 25 mg 02/07/19 09:00 02/08/19 10:44 Hydrochlorothiazide PO 25 mg DAILY HARRISON Administration (Bifidobacterium 0 mg 02/07/19 09:00 02/08/19 10:48 Infantis [Align] 4 PO 1 mg Mg) DAILY HARRISON Administration (Inulin/Chromium 1 each 02/06/19 21:00 02/08/19 10:49 Picolinate [Fiber PO 1 each Gummies] 1 Each) BID HARRISON Administration (Prevagen 1 Tab) 1 tab 02/07/19 09:00 02/08/19 10:49 PO 1 tab DAILY HARRISON Administration Potassium Chloride 10 meq 02/07/19 09:00 02/08/19 10:57 Klor-Con 10 PO Not Given DAILY HARRISON Sertraline HCl 100 mg 02/07/19 09:00 02/08/19 10:44 Zoloft PO 100 mg DAILY HARRISON Administration Tamsulosin HCl 0.4 mg 02/06/19 21:00 02/08/19 10:44 Flomax PO 0.4 mg BID HARRISON Administration Tramadol HCl 50 mg 02/07/19 16:45 02/08/19 05:52 Ultram PO 50 mg Q4H PRN Administration Mild Pain (1-3) - Exam General Appearance: NAD, awake alert Eye: PERRL, anicteric sclera ENT: normocephalic atraumatic, no oropharyngeal lesions Neck: supple, symmetric, no JVD, no thyromegaly Respiratory: CTAB, no wheezes, no rales, no ronchi, normal chest expansion, no tachypnea Gastrointestinal: soft, non-tender, non-distended, normal bowel sounds, no palpable masses Extremities: no cyanosis, no clubbing Skin: normal turgor, no lesions Neurological: CN's grossly intact, no focal deficits, no new deficit Musculoskeletal: normal tone, normal strength Psychiatric: normal affect, normal behavior, A&O x 3 Hosp A/P (1) ESRD (end stage renal disease) Code(s): N18.6 - END STAGE RENAL DISEASE Status: Chronic Plan: Tolerated initial HD session, planning for outpt HD in progress (2) Chronic atrial fibrillation Code(s): I48.2 - CHRONIC ATRIAL FIBRILLATION Status: Chronic Plan: Stable, continue rate-control therapy (3) Chronic anticoagulation Code(s): Z79.01 - BUTTON TACKER (CURRENT) USE OF ANTICOAGULANTS Status: Acute Plan: Resume Eliquis today (4) Hypokalemia Code(s): E87.6 - HYPOKALEMIA Status: Acute - Plan social work associate, out of bed/ambulate, DVT proph w/SCDs Stable currently s/p HD catheter and AV fistula Continue Norvasc, Amiodarone, Coreg Eliquis to resume today CM for coordination of outpt HD Likely d/c in 48h
[2019-02-08] MEDS: HYDROcodone/Acetaminophen 10/325 mg Tablet PO PRN (20:38)
[2019-02-08] MEDS: Apixaban 2.5 MG TAB PO SCH (20:39)
[2019-02-08] MEDS: Gabapentin 300 MG CAP PO SCH (20:39)
[2019-02-08] MEDS: Ubidecarenone 50 MG CAP PO SCH (20:41)
[2019-02-08] MEDS ORDERED: hydrALAZINE 10 MG TAB PO PRN (22:30)
[2019-02-09] MEDS: Hydrochlorothiazide 25 MG TAB PO SCH (08:36)
[2019-02-09] MEDS: Amiodarone 200 MG TAB PO SCH (08:36)
[2019-02-09] MEDS: Amlodipine 5 MG TAB PO SCH ×2 (08:36→21:03)
[2019-02-09] MEDS: Potassium Chloride 10 MEQ TAB PO SCH (08:40)
[2019-02-09] MEDS: Tamsulosin HCl 0.4 MG CAP PO SCH ×2 (08:41→20:56)
[2019-02-09] MEDS: Furosemide 40 MG TAB PO SCH (08:41)
[2019-02-09] MEDS: Carvedilol 25 MG TAB PO SCH ×2 (08:42→20:56)
[2019-02-09] MEDS: Apixaban 2.5 MG TAB PO SCH ×2 (08:43→20:56)
[2019-02-09] MEDS: Bupropion 100 MG SR TAB PO SCH (08:44)
[2019-02-09] MEDS: (Bifidobacterium Infantis [Align] 4 MG) PO SCH (08:45)
[2019-02-09] MEDS: (Inulin/Chromium Picolinate [Fiber Gummies] 1 EACH) PO SCH ×2 (08:46→21:03)
[2019-02-09] MEDS: (Prevagen 1 TAB) PO SCH (08:48)
[2019-02-09] MEDS: HYDROcodone/Acetaminophen 10/325 mg Tablet PO PRN (09:00)
[2019-02-09 12:41] VITALS: BMI 26.1
--- NOTE | 2019-02-09 16:23 | PDOC.HOSPP ---
- Subjective Encounter Date: 02/09/19 Encounter Time: 15:00 Subjective: f/u for ESRD initiating HD this hospital stay. Tolerated first session without difficulty. States no BM x 4 days. - Objective Vital Signs & Weight: Vital Signs (12 hours) Temp Pulse Resp BP BP Pulse Ox 02/09/19 11:05 97.9 F 64 16 116/48 L 97 02/09/19 08:36 68 130/66 02/09/19 08:00 97.8 F 68 12 130/66 99 Weight Admit Weight 182 lb 15.986 oz Weight 162 lb I&O: 02/08/19 02/09/19 02/10/19 06:59 06:59 06:59 Intake Total 0 900 Output Total 200 Balance 0 700 Result Diagrams: 02/06/19 13:08 02/06/19 13:08 Hospitalist ROS - Medication Medications: Active Medications Generic Name Dose Route Start Last Admin Trade Name Freq PRN Reason Stop Dose Admin Hydrocodone Bitart/Acetaminophen 1 tab 02/06/19 17:05 02/09/19 09:00 [place] 10/325 PO 1 tab BID PRN Administration Pain Amiodarone HCl 200 mg 02/07/19 09:00 02/09/19 08:36 Cordarone PO 200 mg DAILY HARRISON Administration Amlodipine Besylate 5 mg 02/06/19 21:00 02/09/19 08:36 Norvasc PO 5 mg BID HARRISON Administration Apixaban 2.5 mg 02/08/19 21:00 02/09/19 08:43 Eliquis PO 2.5 mg BID HARRISON Administration Bupropion HCl 100 mg 02/07/19 09:00 02/09/19 08:44 Wellbutrin Sr PO 100 mg DAILY HARRISON Administration Carvedilol 25 mg 02/06/19 21:00 02/09/19 08:42 Coreg PO 25 mg BID HARRISON Administration Coenzyme Q10 100 mg 02/06/19 21:00 02/08/19 20:41 Coenzyme Q10 PO Not Given QPM HARRISON Furosemide 40 mg 02/07/19 09:00 02/09/19 08:41 Lasix PO 40 mg DAILY HARRISON Administration Gabapentin 300 mg 02/08/19 21:00 02/08/19 20:39 Neurontin PO 300 mg HS HARRISON Administration Hydrochlorothiazide 25 mg 02/07/19 09:00 02/09/19 08:36 Hydrochlorothiazide PO 25 mg DAILY HARRISON Administration (Bifidobacterium 0 mg 02/07/19 09:00 02/09/19 08:45 Infantis [Align] 4 PO 1 mg Mg) DAILY HARRISON Administration (Inulin/Chromium 1 each 02/06/19 21:00 02/09/19 08:46 Picolinate [Fiber PO 1 each Gummies] 1 Each) BID HARRISON Administration (Prevagen 1 Tab) 1 tab 02/07/19 09:00 02/09/19 08:48 PO 1 tab DAILY HARRISON Administration Potassium Chloride 10 meq 02/07/19 09:00 02/09/19 08:40 Klor-Con 10 PO 10 meq DAILY HARRISON Administration Sertraline HCl 100 mg 02/07/19 09:00 02/09/19 08:41 Zoloft PO 100 mg DAILY HARRISON Administration Tamsulosin HCl 0.4 mg 02/06/19 21:00 02/09/19 08:41 Flomax PO 0.4 mg BID HARRISON Administration Tramadol HCl 50 mg 02/07/19 16:45 02/08/19 05:52 Ultram PO 50 mg Q4H PRN Administration Mild Pain (1-3) - Exam General Appearance: NAD, awake alert Eye: PERRL, anicteric sclera ENT: normocephalic atraumatic, no oropharyngeal lesions Neck: supple, symmetric, no JVD, no thyromegaly, no lymphadenopathy Heart: RRR, no gallops, no rubs, normal peripheral pulses Respiratory: CTAB, no wheezes, no rales, no ronchi Gastrointestinal: soft, non-tender, non-distended, normal bowel sounds, no palpable masses, no hepatomegaly Extremities: no cyanosis, no clubbing Extremeties - other findings: RUE with AV fistula, + ecchymosis/edema in antecubital fossa/forearm Neurological: CN's grossly intact, no focal deficits, no new deficit Musculoskeletal: normal tone, normal strength Psychiatric: normal affect, normal behavior, A&O x 3 Hosp A/P (1) ESRD (end stage renal disease) Code(s): N18.6 - END STAGE RENAL DISEASE Status: Chronic Plan: HD initiated, CM to assist with outpt coordination (2) Chronic atrial fibrillation Code(s): I48.2 - CHRONIC ATRIAL FIBRILLATION Status: Chronic Plan: Stable (3) Chronic anticoagulation Code(s): Z79.01 - DRAG DOWN (CURRENT) USE OF ANTICOAGULANTS Status: Chronic Plan: Resume Eliquis 5mg BID (4) Hypokalemia Code(s): E87.6 - HYPOKALEMIA Status: Acute (5) Constipation Code(s): K59.00 - CONSTIPATION, UNSPECIFIED Status: Acute Qualifiers: Constipation type: slow transit constipation Qualified Code(s): K59.01 - Slow transit constipation Plan: Start Senokot-S BID - Plan social services manager, out of bed/ambulate Stable currently s/p HD catheter and AV fistula Continue Norvasc, Amiodarone, Coreg Eliquis resuming CM for coordination of outpt HD Senokot-S BID
--- NOTE | 2019-02-09 16:31 | EKG ---
Test Reason : Blood Pressure : / mmHG Vent. Rate : 064 BPM Atrial Rate : 064 BPM P-R Int : 000 ms QRS Dur : 180 ms QT Int : 488 ms P-R-T Axes : 000 -81 096 degrees QTc Int : 503 ms AV sequential or dual chamber electronic pacemaker When compared with ECG of 06-DEC-2018 07:10, (Unconfirmed) Vent. rate has increased BY 2 BPM Confirmed by FUENTES GARCIA ([id number]) on 02/09/2019 4:31:43 PM Referred By: HARLAN FARLEY Confirmed By:FUENTES GARCIA
[2019-02-09] MEDS: Senokot S 8.6-50 MG TAB PO SCH (20:55)
[2019-02-09] MEDS: Gabapentin 300 MG CAP PO SCH (20:57)
[2019-02-09] MEDS: Ubidecarenone 50 MG CAP PO SCH (21:03)
[2019-02-10] MEDS ORDERED: READ PPD TEST SITE PO SCH ×2 (07:15→07:30)
[2019-02-10] MEDS ORDERED: Tuberculin PPD 0.1 ML VIAL I-DERMAL SCH (07:30)
[2019-02-10] MEDS: HYDROcodone/Acetaminophen 10/325 mg Tablet PO PRN (09:02)
[2019-02-10] MEDS: Amiodarone 200 MG TAB PO SCH (09:03)
[2019-02-10] MEDS: Furosemide 40 MG TAB PO SCH (09:04)
[2019-02-10] MEDS: Tamsulosin HCl 0.4 MG CAP PO SCH ×2 (09:04→21:43)
[2019-02-10] MEDS: Potassium Chloride 10 MEQ TAB PO SCH (09:05)
[2019-02-10] MEDS: Carvedilol 25 MG TAB PO SCH ×2 (09:06→21:42)
[2019-02-10] MEDS: Senokot S 8.6-50 MG TAB PO SCH ×2 (09:06→21:42)
[2019-02-10] MEDS: Apixaban 2.5 MG TAB PO SCH ×2 (09:06→21:42)
[2019-02-10] MEDS: (Inulin/Chromium Picolinate [Fiber Gummies] 1 EACH) PO SCH ×2 (09:07→21:43)
[2019-02-10] MEDS: (Bifidobacterium Infantis [Align] 4 MG) PO SCH (09:07)
[2019-02-10] MEDS: Amlodipine 5 MG TAB PO SCH ×2 (09:13→21:42)
[2019-02-10] MEDS: Hydrochlorothiazide 25 MG TAB PO SCH (09:13)
[2019-02-10] MEDS: (Prevagen 1 TAB) PO SCH (09:14)
[2019-02-10] MEDS: Bupropion 100 MG SR TAB PO SCH (09:18)
[2019-02-10] MEDS ORDERED: Heparin 10,000 UNITS/1 ML VIAL ONE (15:00)
--- NOTE | 2019-02-10 15:58 | PDOC.HOSPP ---
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 No new problem. - Objective Vital Signs & Weight: Vital Signs (12 hours) Temp Pulse Resp BP Pulse Ox 02/10/19 12:56 98.4 F 63 18 109/43 L 95 02/10/19 09:13 83 02/10/19 08:00 93 L 02/10/19 07:27 98.2 F 83 18 108/61 93 L 02/10/19 04:09 98.4 F 65 16 126/82 94 L Weight Admit Weight 182 lb 15.986 oz Weight 162 lb I&O: 02/09/19 02/10/19 02/11/19 06:59 06:59 06:59 Intake Total 900 Output Total 200 Balance 700 Result Diagrams: 02/06/19 13:08 02/06/19 13:08 Hospitalist ROS - Medication Medications: Active Medications Generic Name Dose Route Start Last Admin Trade Name Freq PRN Reason Stop Dose Admin Hydrocodone Bitart/Acetaminophen 1 tab 02/06/19 17:05 02/10/19 09:02 [place] 10/325 PO 1 tab BID PRN Administration Pain Amiodarone HCl 200 mg 02/07/19 09:00 02/10/19 09:03 Cordarone PO 200 mg DAILY HARRISON Administration Amlodipine Besylate 5 mg 02/06/19 21:00 02/10/19 09:13 Norvasc PO Not Given BID HARRISON Apixaban 2.5 mg 02/08/19 21:00 02/10/19 09:06 Eliquis PO 2.5 mg BID HARRISON Administration Bupropion HCl 100 mg 02/07/19 09:00 02/10/19 09:18 Wellbutrin Sr PO 100 mg DAILY HARRISON Administration Carvedilol 25 mg 02/06/19 21:00 02/10/19 09:06 Coreg PO 25 mg BID HARRISON Administration Coenzyme Q10 100 mg 02/06/19 21:00 02/09/19 21:03 Coenzyme Q10 PO Not Given QPM HARRISON Furosemide 40 mg 02/07/19 09:00 02/10/19 09:04 Lasix PO Not Given DAILY HARRISON Gabapentin 300 mg 02/08/19 21:00 02/09/19 20:57 Neurontin PO 300 mg HS HARRISON Administration Hydrochlorothiazide 25 mg 02/07/19 09:00 02/10/19 09:13 Hydrochlorothiazide PO Not Given DAILY HARRISON (Bifidobacterium 0 mg 02/07/19 09:00 02/10/19 09:07 Infantis [Align] 4 PO 1 mg Mg) DAILY HARRISON Administration (Inulin/Chromium 1 each 02/06/19 21:00 02/10/19 09:07 Picolinate [Fiber PO 1 each Gummies] 1 Each) BID HARRISON Administration (Prevagen 1 Tab) 1 tab 02/07/19 09:00 02/10/19 09:14 PO 1 tab DAILY HARRISON Administration Potassium Chloride 10 meq 02/07/19 09:00 02/10/19 09:05 Klor-Con 10 PO 10 meq DAILY HARRISON Administration Senna/Docusate Sodium 1 tab 02/09/19 21:00 02/10/19 09:06 Senokot S PO 1 tab BID HARRISON Administration Sertraline HCl 100 mg 02/07/19 09:00 02/10/19 09:04 Zoloft PO 100 mg DAILY HARRISON Administration Tamsulosin HCl 0.4 mg 02/06/19 21:00 02/10/19 09:04 Flomax PO 0.4 mg BID HARRISON Administration Tramadol HCl 50 mg 02/07/19 16:45 02/08/19 05:52 Ultram PO 50 mg Q4H PRN Administration Mild Pain (1-3) - Exam General Appearance: awake alert Eye: anicteric sclera ENT: normocephalic atraumatic Neck: supple Heart: RRR Respiratory: no wheezes, no rales, no ronchi, normal chest expansion Gastrointestinal: soft, non-tender, non-distended, normal bowel sounds Extremities: no cyanosis, 1+ LE edema Extremeties - other findings: mild erythema around right medial elbow AVF site Neurological: CN's grossly intact, no focal deficits Hosp A/P (1) ESRD (end stage renal disease) Code(s): N18.6 - END STAGE RENAL DISEASE Status: Chronic (2) Constipation Code(s): K59.00 - CONSTIPATION, UNSPECIFIED Status: Acute Qualifiers: Constipation type: slow transit constipation Qualified Code(s): K59.01 - Slow transit constipation (3) Hypokalemia Code(s): E87.6 - HYPOKALEMIA Status: Acute (4) Chronic anticoagulation Code(s): Z79.01 - LONGTERM (CURRENT) USE OF ANTICOAGULANTS Status: Chronic (5) Chronic atrial fibrillation Code(s): I48.2 - CHRONIC ATRIAL FIBRILLATION Status: Chronic - Plan Continue current treatments. For discharge once dialysis chair is arranged.
[2019-02-10] MEDS: traMADol HCl 50 MG TAB PO PRN (17:40)
[2019-02-10] MEDS: Gabapentin 300 MG CAP PO SCH (21:42)
[2019-02-10] MEDS: Ubidecarenone 50 MG CAP PO SCH (21:43)
[2019-02-11 05:55] LABS: #Basophils 0.1 thou/uL (0.0-0.2); #Eosinphils 0.4 thou/uL (0.0-0.7); #Lymphocytes 1.4 thou/uL (1.20-3.40); #Monocytes 0.9 thou/uL (0.11-0.59); #Neutrophils 5.6 thou/uL (1.40-6.50); %Basophils 0.8 % (0.0-1.0); %Eosinophils 4.9 % (0.0-10.0); %Lymphocytes 16.4 % (21.0-51.0); %Monocytes 10.8 % (0.0-10.0); %Neutrophils 67.2 % (42.0-75.0); Hemoglobin 8.9 g/dL (14.0-18.0); Mean Corpuscular HGB CONC 35.5 g/dL (32.0-36.0); Mean Corpuscular Hemoglobin 33.7 pg (27.0-31.0); Mean Corpuscular Volume 94.8 fL (78.0-98.0); Mean Platelet Volume 8.3 fL (7.4-10.4); Platelet Count 86 thou/uL (130-400); RBC Distribution Width 12.4 % (11.5-14.5); Red Blood Cell (RBC) Count 2.65 mill/uL (4.70-6.10); White Blood Cell (WBC) Count 8.4 thou/uL (4.8-10.8)
[2019-02-11 06:09] LABS: Albumin 3.5 g/dL (3.4-4.8); Anion Gap 12 mmol/L (10-20); BUN (Urea Nitrogen) 59 mg/dL (8.4-25.7); BUN/Creatinine Ratio 13.63; Calc. Creatinine Clearance 12 mL/min (70-130); Calcium 8.7 mg/dL (7.8-10.44); Carbon Dioxide 26 mmol/L (23-31); Chloride 101 mmol/L (98-107); Estimated GFR-MDRD 13; Glucose 130 mg/dL (83-110); Phosphorus 4.1 mg/dL (2.3-4.7); Potassium 3.5 mmol/L (3.5-5.1); Sodium 135 mmol/L (136-145)
[2019-02-11] MEDS: Senokot S 8.6-50 MG TAB PO SCH ×2 (09:30→21:50)
[2019-02-11] MEDS: Bupropion 100 MG SR TAB PO SCH (09:30)
[2019-02-11] MEDS: Carvedilol 25 MG TAB PO SCH ×2 (09:30→21:52)
[2019-02-11] MEDS: Tamsulosin HCl 0.4 MG CAP PO SCH ×2 (09:30→21:51)
[2019-02-11] MEDS: Apixaban 2.5 MG TAB PO SCH ×2 (09:30→21:49)
[2019-02-11] MEDS: Amiodarone 200 MG TAB PO SCH (09:30)
[2019-02-11] MEDS: Hydrochlorothiazide 25 MG TAB PO SCH (09:30)
[2019-02-11] MEDS: Potassium Chloride 10 MEQ TAB PO SCH (09:31)
[2019-02-11] MEDS: (Inulin/Chromium Picolinate [Fiber Gummies] 1 EACH) PO SCH ×2 (09:31→21:51)
[2019-02-11] MEDS: (Prevagen 1 TAB) PO SCH (09:31)
[2019-02-11] MEDS: Furosemide 40 MG TAB PO SCH (09:31)
[2019-02-11] MEDS: Amlodipine 5 MG TAB PO SCH ×2 (09:32→21:51)
[2019-02-11] MEDS: (Bifidobacterium Infantis [Align] 4 MG) PO SCH (09:33)
[2019-02-11] MEDS: Gabapentin 300 MG CAP PO SCH (21:51)
[2019-02-11] MEDS: Ubidecarenone 50 MG CAP PO SCH (21:52)
[2019-02-11] MEDS ORDERED: Senokot S 8.6-50 MG TAB PO SCH (22:50)
--- NOTE | 2019-02-11 22:53 | PDOC.HOSPP ---
- Subjective Encounter Date: 02/11/19 Encounter Time: 13:30 Subjective: Patient seen and examined for worsening CKD/ESRD. Feels gen weak. Constipated. No CP. No new complaints. No overnight events - Objective Vital Signs & Weight: Vital Signs (12 hours) Temp Pulse Resp BP BP Pulse Ox 02/11/19 21:51 64 02/11/19 20:07 97.8 F 64 16 110/69 93 L 02/11/19 15:52 97.9 F 71 16 111/69 95 02/11/19 11:56 97.9 F 89 20 96/61 98 Weight Admit Weight 182 lb 15.986 oz Weight 162 lb I&O: 02/10/19 02/11/19 02/12/19 06:59 06:59 06:59 Intake Total 1989 Balance 1989 Result Diagrams: 02/11/19 05:34 02/11/19 05:34 Hospitalist ROS - Review of Systems Respiratory: denies: cough, dry, shortness of breath, hemoptysis, SOB with excertion, pleuritic pain, sputum, wheezing, other Cardiovascular: denies: chest pain, palpitations, orthopnea, paroxysmal noc. dyspnea, edema, light headedness, other - Medication Medications: Active Medications Generic Name Dose Route Start Last Admin Trade Name Freq PRN Reason Stop Dose Admin Acetaminophen 1,000 mg 02/07/19 16:45 02/10/19 17:41 Tylenol PO 1,000 mg Q6H PRN Administration Moderate to Severe Pain (6-10) Hydrocodone Bitart/Acetaminophen 1 tab 02/06/19 17:05 02/10/19 09:02 [place] 10/325 PO 1 tab BID PRN Administration Pain Amiodarone HCl 200 mg 02/07/19 09:00 02/11/19 09:30 Cordarone PO 200 mg DAILY HARRISON Administration Amlodipine Besylate 5 mg 02/06/19 21:00 02/11/19 21:51 Norvasc PO Not Given BID HARRISON Apixaban 2.5 mg 02/08/19 21:00 02/11/19 21:49 Eliquis PO 2.5 mg BID HARRISON Administration Bupropion HCl 100 mg 02/07/19 09:00 02/11/19 09:30 Wellbutrin Sr PO 100 mg DAILY HARRISON Administration Carvedilol 25 mg 02/06/19 21:00 02/11/19 21:52 Coreg PO Not Given BID HARRISON Coenzyme Q10 100 mg 02/06/19 21:00 02/11/19 21:52 Coenzyme Q10 PO Not Given QPM HARRISON Furosemide 40 mg 02/07/19 09:00 02/11/19 09:31 Lasix PO 40 mg DAILY HARRISON Administration Gabapentin 300 mg 02/08/19 21:00 02/11/19 21:51 Neurontin PO 300 mg HS HARRISON Administration (Bifidobacterium 0 mg 02/07/19 09:00 02/11/19 09:33 Infantis [Align] 4 PO 4 mg Mg) DAILY HARRISON Administration (Inulin/Chromium 1 each 02/06/19 21:00 02/11/19 21:51 Picolinate [Fiber PO 1 each Gummies] 1 Each) BID HARRISON Administration (Prevagen 1 Tab) 1 tab 02/07/19 09:00 02/11/19 09:31 PO 1 tab DAILY HARRISON Administration Potassium Chloride 10 meq 02/07/19 09:00 02/11/19 09:31 Klor-Con 10 PO 10 meq DAILY HARRISON Administration Sertraline HCl 100 mg 02/07/19 09:00 02/11/19 09:33 Zoloft PO 100 mg DAILY HARRISON Administration Tamsulosin HCl 0.4 mg 02/06/19 21:00 02/11/19 21:51 Flomax PO 0.4 mg BID HARRISON Administration Tramadol HCl 50 mg 02/07/19 16:45 02/10/19 17:40 Ultram PO 50 mg Q4H PRN Administration Mild Pain (1-3) - Exam General Appearance: NAD Neck: supple Heart: RRR, no gallops Respiratory: CTAB, no rales Gastrointestinal: soft, non-tender, normal bowel sounds Extremities: no edema Extremeties - other findings: RUE swelling around the surgical site Hosp A/P (1) ESRD (end stage renal disease) Code(s): N18.6 - END STAGE RENAL DISEASE Status: Chronic (2) Paroxysmal A-fib Code(s): I48.0 - PAROXYSMAL ATRIAL FIBRILLATION Status: Chronic (3) Anemia of renal disease Code(s): N18.9 - CHRONIC KIDNEY DISEASE, UNSPECIFIED; D63.1 - ANEMIA IN CHRONIC KIDNEY DISEASE Status: Chronic (4) Constipation Code(s): K59.00 - CONSTIPATION, UNSPECIFIED Status: Acute (5) Hypokalemia Code(s): E87.6 - HYPOKALEMIA Status: Acute (6) Chronic anticoagulation Code(s): Z79.01 - [facility] (CURRENT) USE OF ANTICOAGULANTS Status: Chronic - Plan Treat constipation Cont Amiodarone/Eliquis and other meds as above Labs Q48hr Cont to monitor Await outpt dialysis setup
[2019-02-11] MEDS ORDERED: Polyethylene Glycol 3350 17 GM Packet PO PRN (23:27)
[2019-02-11] MEDS ORDERED: TAP WATER ENEMA FS PRN (23:28)
[2019-02-11] MEDS ORDERED: Polyethylene Glycol 3350 17 GM Packet PO SCH (23:30)
[2019-02-12] MEDS: (Inulin/Chromium Picolinate [Fiber Gummies] 1 EACH) PO SCH ×2 (08:59→21:25)
[2019-02-12] MEDS: (Bifidobacterium Infantis [Align] 4 MG) PO SCH (08:59)
[2019-02-12] MEDS: (Prevagen 1 TAB) PO SCH (09:00)
[2019-02-12] MEDS ORDERED: Heparin 10,000 UNITS/ 10 ML VIAL ONE (09:00)
[2019-02-12] MEDS: Potassium Chloride 10 MEQ TAB PO SCH (09:01)
[2019-02-12] MEDS: Carvedilol 25 MG TAB PO SCH ×2 (09:01→21:22)
[2019-02-12] MEDS: Apixaban 2.5 MG TAB PO SCH ×2 (09:01→22:10)
[2019-02-12] MEDS: Furosemide 40 MG TAB PO SCH (09:01)
[2019-02-12] MEDS: Bupropion 100 MG SR TAB PO SCH (09:01)
[2019-02-12] MEDS: Tamsulosin HCl 0.4 MG CAP PO SCH ×2 (09:01→21:21)
[2019-02-12] MEDS: Amiodarone 200 MG TAB PO SCH (09:01)
[2019-02-12] MEDS: Polyethylene Glycol 3350 17 GM Packet PO SCH (09:02)
[2019-02-12] MEDS: HYDROcodone/Acetaminophen 10/325 mg Tablet PO PRN (16:42)
--- NOTE | 2019-02-12 17:20 | PDOC.HOSPP ---
- Subjective Encounter Date: 02/12/19 Encounter Time: 14:00 Subjective: Patient seen and examined for ESRD. No SOB/N/V or fever. Underwent dialysis today. No new complaints. No overnight events. Had BM after enema last night. - Objective Vital Signs & Weight: Vital Signs (12 hours) Temp Pulse Resp BP Pulse Ox 02/12/19 14:57 98.7 F 60 20 113/65 98 02/12/19 08:48 95 02/12/19 07:12 97.7 F 65 14 112/64 97 Weight Admit Weight 182 lb 15.986 oz Weight 162 lb I&O: 02/11/19 02/12/19 02/13/19 06:59 06:59 06:59 Intake Total 1989 900 Balance 1989 900 Result Diagrams: 02/11/19 05:34 02/11/19 05:34 Hospitalist ROS - Review of Systems Respiratory: denies: cough, dry, shortness of breath, hemoptysis, SOB with excertion, pleuritic pain, sputum, wheezing, other Cardiovascular: denies: chest pain, palpitations, orthopnea, paroxysmal noc. dyspnea, edema, light headedness, other Gastrointestinal: denies: nausea, vomitting, abdominal pain, diarrhea, constipation, melena, hematochezia, other - Medication Medications: Active Medications Generic Name Dose Route Start Last Admin Trade Name Freq PRN Reason Stop Dose Admin Acetaminophen 1,000 mg 02/07/19 16:45 02/10/19 17:41 Tylenol PO 1,000 mg Q6H PRN Administration Moderate to Severe Pain (6-10) Hydrocodone Bitart/Acetaminophen 1 tab 02/06/19 17:05 02/12/19 16:42 [place] 10/325 PO 1 tab BID PRN Administration Pain Amiodarone HCl 200 mg 02/07/19 09:00 02/12/19 09:01 Cordarone PO 200 mg DAILY HARRISON Administration Apixaban 2.5 mg 02/08/19 21:00 02/12/19 09:01 Eliquis PO Not Given BID HARRISON Bupropion HCl 100 mg 02/07/19 09:00 02/12/19 09:01 Wellbutrin Sr PO Not Given DAILY HARRISON Carvedilol 25 mg 02/06/19 21:00 02/12/19 09:01 Coreg PO 25 mg BID HARRISON Administration Coenzyme Q10 100 mg 02/06/19 21:00 02/11/19 21:52 Coenzyme Q10 PO Not Given QPM HARRISON Furosemide 40 mg 02/07/19 09:00 02/12/19 09:01 Lasix PO Not Given DAILY HARRISON Gabapentin 300 mg 02/08/19 21:00 02/11/19 21:51 Neurontin PO 300 mg HS HARRISON Administration (Bifidobacterium 0 mg 02/07/19 09:00 02/12/19 08:59 Infantis [Align] 4 PO 1 mg Mg) DAILY HARRISON Administration (Inulin/Chromium 1 each 02/06/19 21:00 02/12/19 08:59 Picolinate [Fiber PO 1 each Gummies] 1 Each) BID HARRISON Administration (Prevagen 1 Tab) 1 tab 02/07/19 09:00 02/12/19 09:00 PO 1 tab DAILY HARRISON Administration Tap Water Enema 1 each 02/11/19 23:28 02/12/19 05:45 FS 1 each PRN PRN Administration Constipation Polyethylene Glycol 17 gm 02/12/19 09:00 02/12/19 09:02 Miralax PO Not Given DAILY HARRISON Potassium Chloride 10 meq 02/07/19 09:00 02/12/19 09:01 Klor-Con 10 PO Not Given DAILY HARRISON Sertraline HCl 100 mg 02/07/19 09:00 02/12/19 09:01 Zoloft PO 100 mg DAILY HARRISON Administration Tamsulosin HCl 0.4 mg 02/06/19 21:00 02/12/19 09:01 Flomax PO 0.4 mg BID HARRISON Administration Tramadol HCl 50 mg 02/07/19 16:45 02/10/19 17:40 Ultram PO 50 mg Q4H PRN Administration Mild Pain (1-3) - Exam General Appearance: NAD Heart: RRR, no gallops Respiratory: CTAB, no wheezes, no rales, no ronchi Gastrointestinal: soft, non-tender Extremities: no edema Hosp A/P (1) ESRD (end stage renal disease) Code(s): N18.6 - END STAGE RENAL DISEASE Status: Chronic (2) Paroxysmal A-fib Code(s): I48.0 - PAROXYSMAL ATRIAL FIBRILLATION Status: Chronic (3) Anemia of renal disease Code(s): N18.9 - CHRONIC KIDNEY DISEASE, UNSPECIFIED; D63.1 - ANEMIA IN CHRONIC KIDNEY DISEASE Status: Chronic (4) Constipation Code(s): K59.00 - CONSTIPATION, UNSPECIFIED Status: Acute (5) Hypokalemia Code(s): E87.6 - HYPOKALEMIA Status: Acute (6) Chronic anticoagulation Code(s): Z79.01 - [employer] (CURRENT) USE OF ANTICOAGULANTS Status: Chronic - Plan Cont Amiodarone/Eliquis and other meds as above Cont to monitor Await outpt dialysis setup
[2019-02-12] MEDS: Ubidecarenone 50 MG CAP PO SCH (21:21)
[2019-02-12] MEDS: Gabapentin 300 MG CAP PO SCH (21:22)
[2019-02-12] MEDS: Senokot S 8.6-50 MG TAB PO SCH (21:25)
[2019-02-13 07:33] LABS: Platelet Count 105 thou/uL (130-400)
[2019-02-13 07:44] LABS: Anion Gap 13 mmol/L (10-20); BUN (Urea Nitrogen) 42 mg/dL (8.4-25.7); Calc. Creatinine Clearance 13 mL/min (70-130); Calcium 8.6 mg/dL (7.8-10.44); Carbon Dioxide 28 mmol/L (23-31); Chloride 100 mmol/L (98-107); Estimated GFR-MDRD 14; Glucose 99 mg/dL (83-110); Potassium 3.6 mmol/L (3.5-5.1); Sodium 137 mmol/L (136-145)
[2019-02-13] MEDS: Potassium Chloride 10 MEQ TAB PO SCH (08:24)
[2019-02-13] MEDS: Apixaban 2.5 MG TAB PO SCH ×2 (08:25→20:51)
[2019-02-13] MEDS: Amiodarone 200 MG TAB PO SCH (08:25)
[2019-02-13] MEDS: Furosemide 40 MG TAB PO SCH (08:25)
[2019-02-13] MEDS: Carvedilol 25 MG TAB PO SCH ×2 (08:25→20:51)
[2019-02-13] MEDS: Tamsulosin HCl 0.4 MG CAP PO SCH ×2 (08:25→20:51)
[2019-02-13] MEDS: HYDROcodone/Acetaminophen 10/325 mg Tablet PO PRN (08:30)
[2019-02-13] MEDS: Bupropion 100 MG SR TAB PO SCH (09:50)
[2019-02-13] MEDS: (Bifidobacterium Infantis [Align] 4 MG) PO SCH (09:56)
[2019-02-13] MEDS: (Inulin/Chromium Picolinate [Fiber Gummies] 1 EACH) PO SCH ×2 (09:57→20:52)
[2019-02-13] MEDS: (Prevagen 1 TAB) PO SCH (09:57)
[2019-02-13] MEDS: Polyethylene Glycol 3350 17 GM Packet PO SCH (10:40)
[2019-02-13] MEDS: Senokot S 8.6-50 MG TAB PO SCH ×2 (10:41→20:52)
[2019-02-13] MEDS: Ubidecarenone 50 MG CAP PO SCH (20:51)
[2019-02-13] MEDS: Gabapentin 300 MG CAP PO SCH (20:51)
[2019-02-14 07:30] VITALS: BP 112/59; TEMP 97.7
--- NOTE | 2019-02-14 08:00 | DIS ---
DATE OF ADMISSION: 02/06/2019 DATE OF DISCHARGE: 02/13/2019 DISCHARGE DISPOSITION: Home. FOLLOWUP: 1. Follow up with primary care physician, Dr. Belén Hubbard in 1 week. 2. Follow up with Nephrology, Dr. Freire at [facility] in [place]. Please note, the patient's primary picking machine operator is Dr. Stanley Alejandro; however, Dr. Stanley Alejandro does not cover [facility] dialysis. DISCHARGE MEDICATIONS: Amlodipine and hydrochlorothiazide were discontinued. All other home medications were left unchanged. His blood pressure on the day of discharge is 108/62. The patient was seen and examined on the day of discharge. Denies any new complaints. No chest pain, shortness of breath, or palpitations reported. BRIEF HOSPITAL COURSE: The patient is an 89-year-old male with end-stage renal disease, followed by Dr. Stanley Alejandro, was admitted to the hospital for initiation of hemodialysis due to worsening CKD stage 5. The patient underwent right IJ cuffed tunneled hemodialysis catheter along with right upper extremity dialysis graft. He was monitored on the medical floor. He tolerated dialysis during this hospital stay. There was a delay in dialysis setup due to weekend. He has been accepted at [facility] in [place]. Dr. Freire will follow up with the patient at that facility. He has been cleared by consultants for discharge. FINAL DIAGNOSES: 1. Worsening chronic kidney disease/end-stage renal disease, started on hemodialysis. 2. Paroxysmal atrial fibrillation on chronic anticoagulation. 3. Anemia of renal disease. 4. Constipation, resolved. 5. Hypokalemia, replaced. 6. Hyponatremia. 7. Thrombocytopenia. 8. Hyperlipidemia. 9. Peripheral neuropathy. 10. Chronic diastolic heart failure. 11. Sick sinus syndrome, status post pacemaker. 12. Bilateral lower extremity venous insufficiency. 13. Anxiety. 14. Benign prostatic hypertrophy. 15. Sulfa and iodine allergy. PLAN: Plan of care was discussed with the patient in detail. He stated understanding. The patient was seen and examined on the day of discharge. Denies any new complaints. Vital signs on the day of discharge showed temperature 98.6, pulse rate of 82, respirations of 16, blood pressure 108/62 with O2 saturation 98% on room. Job ID: [id number]
== END 2019-02-14 08:47 | disposition home or self-care (01) | DRG 252 ==
LOC: SJJU 11:46
PROVIDERS: ADMIT Family Medicine; ATTEND Family Medicine
PROC: 03170JF Bypass Right Brachial Artery to Lower Arm Vein with Synthetic Substitute, Open Approach (ICD-10-PCS; principal; 2019-02-07)
PROC: 05JY0ZZ Inspection of Upper Vein, Open Approach (ICD-10-PCS; 2019-02-07)
PROC: 0JH63XZ Insertion of Tunneled Vascular Access Device into Chest Subcutaneous Tissue and Fascia, Percutaneous Approach (ICD-10-PCS; 2019-02-07)
PROC: 02HV33Z Insertion of Infusion Device into Superior Vena Cava, Percutaneous Approach (ICD-10-PCS; 2019-02-07)
PROC: B518YZA Fluoroscopy of Superior Vena Cava using Other Contrast, Guidance (ICD-10-PCS; 2019-02-07)
PROC: B544ZZZ Ultrasonography of Left Jugular Veins (ICD-10-PCS; 2019-02-07)
PROC: B543ZZZ Ultrasonography of Right Jugular Veins (ICD-10-PCS; 2019-02-07)
PROC: 5A1D70Z Performance of Urinary Filtration, Intermittent, Less than 6 Hours Per Day (ICD-10-PCS; 2019-02-07)
DX: I13.2 Hypertensive heart and chronic kidney disease with heart failure and with stage 5 chronic kidney disease, or end stage renal disease (principal); N18.6 End stage renal disease; E87.1 Hypo-osmolality and hyponatremia; I50.32 Chronic diastolic (congestive) heart failure; I49.5 Sick sinus syndrome; I87.2 Venous insufficiency (chronic) (peripheral); E78.5 Hyperlipidemia, unspecified; E87.6 Hypokalemia; D63.1 Anemia in chronic kidney disease; E11.22 Type 2 diabetes mellitus with diabetic chronic kidney disease; E11.42 Type 2 diabetes mellitus with diabetic polyneuropathy; K59.01 Slow transit constipation; I48.0 Paroxysmal atrial fibrillation; D69.6 Thrombocytopenia, unspecified; F41.9 Anxiety disorder, unspecified; Z96.653 Presence of artificial knee joint, bilateral; N40.0 Benign prostatic hyperplasia without lower urinary tract symptoms; Z95.810 Presence of automatic (implantable) cardiac defibrillator; Z79.01 Long term (current) use of anticoagulants; Z88.1 Allergy status to other antibiotic agents; Z88.2 Allergy status to sulfonamides; Z91.048 Other nonmedicinal substance allergy status; Z91.041 Radiographic dye allergy status; Z89.012 Acquired absence of left thumb
CPT/HCPCS: 36415; 36416; 71045; 76000; 80048; 80053; 80069; 81001; 82570; 83735; 84100; 85014; 85018; 85025; 85049; 86580; 86704; 86706; 86707; 86803; 87340; 87389; 90935; 93005; 93010; 93970; C1752; C1769; G0257; G0365; J0670; J0690; J1644; J2001; J2250; J2704; J2720; J3010; L8670; Q0163; Q9967

== ENCOUNTER 2019-08-14 12:20 | Day surgery (SDC) | payer MEDICARE ==
[~2019-08-14 12:20] MED LIST changes: +Activase 2 MG VIAL CATH SCH; +FLU VACC TS2019-20(65YR UP)/PF 180 MCG/0.5 ML SYRINGE IM ONE; +Famotidine 20 MG TAB PO SCH; +Hydrocortisone Sod Succ/PF 100 mg/2 ml Vial IVP SCH; -Lidocaine Viscous Sol 2% 15 ml UD Cup ONE; -PROPOFOL 20 ML ONE; +Sterile Water 10 ML VIAL IVP SCH; +diphenhydrAMINE 50 MG/ML VIAL IVP SCH
[2019-08-14] MEDS ORDERED: Sodium Chloride 0.9% 10 ML ONE (12:39)
[2019-08-14] MEDS ORDERED: Iopamidol 300 61% 100 ML VIAL FS ONE (15:06)
--- NOTE | 2019-08-14 15:16 | SPC ---
Right upper extremity dialysis graft fistulogram Thrombolysis right upper extremity dialysis graft Percutaneous balloon angioplasty right upper extremity dialysis graft and venous outflow Sonographic guided vascular access x2 HISTORY: End-stage renal disease. Poor function of right upper extremity dialysis graft. FINDINGS: Due to documented history of iodine allergy, patient was premedicated with IV steroid and d iphenhydramine. After explaining the procedure and answering all questions, the right upper extremity was prepped and draped in usual sterile fashion. Sterile technique, buffered local anesthes ia, sonographic guidance, and a 22-gauge needle were used to carefully access the most peripheral portion of the right upper arm dialysis graft, just above the level of the antecubital fossa. A 4 Ulisses [facility] micropuncture sheath was carefully placed for serial imaging, showing clot within the graft. The [place] axillary vein is patent, although flow is extremely slow. Due to the extensively slow flow, the subclavian vein was not initially opacified. Short 6 Portuguese she ath was placed. A 0.035 Glidewire did not initially pass into the subclavian vein. The 5 Portuguese Berenstein catheter was carefully placed to the central portion of the axillary vein for serial imagi ng. Contrast injection was extravascular, presumably immediately extraluminal. This extra vascular injected contrast remained throughout the procedure. The Glidewire was again carefully inserted, this time easily passing into the subclavian vein and sup erior vena cava. Sequential imaging was performed at this time and at the end of the exam, showing the subclavian vein, brachiocephalic vein, and superior vena cava to be widely patent but with very v rosi slow flow. When contrast was injected, there was reflux into the internal jugular vein. No focal stenosis. A second vascular access to the graft was made with sonographic guidance, at the central portion of t he graft, directed towards the arterial inflow. A short 6 Portuguese sheath was placed, and a Berenstein catheter carefully positioned near the arterial anastomosis. Good arterial flow and a victoria nt anastomosis were confirmed. Some clot was seen throughout the graft. A total of 10 cc volume containing 4 mg recomment TPA and 2000 units heparin were carefully laced thr oughout the entirety of the graft, using both access sheaths and the Berenstein catheter. A 6 mm x 4 cm balloon was carefully placed over a 0.035 Glidewire to the junction of the axillary and subclavian veins. Full bone profile easily achieved. The balloon was fully inflated along the length of the venous outflow from the graft and throughout the length of the graft. Directed towards the arterial inflow, the balloon was placed and carefully inflated throughout the length of the graft, with the exception of the arterial anastomosis. Repeat imaging showed congregational of vascular caliber throughout the graft and venous outflow, includ ing the axillary/subclavian vein and superior vena cava. There was very slow flow of contrast, however, so that even contrast injected within the superior vena cava refluxed into the internal jugu lar vein. The sheaths were removed and hemostasis obtained using direct pressure. Patient tolerated the procedu re well and was eventually dismissed in good condition. IMPRESSION: Technically successful thrombolysis and balloon angioplasty of right upper arm dialysis g raft. Full caliber of the graft and venous outflow was restored. Arterial anastomosis seen to be widely patent. Very slow flow within the graft was seen but was also documented all the way to the superior vena cav a, where very poor cardiac intake was shown. The very sluggish flow appears to be related to heart failure.
[2019-08-14 15:19] VITALS: BP 154/70; TEMP 98.2
== END 2019-08-14 14:50 | disposition home or self-care (01) ==
LOC: SPEC 12:20
PROVIDERS: ATTEND Internal Medicine Nephrology
PROC: 03C53ZZ Extirpation of Matter from Right Axillary Artery, Percutaneous Approach (ICD-10-PCS; principal; 2019-08-14)
DX: T82.868A Thrombosis due to vascular prosthetic devices, implants and grafts, initial encounter (principal); I13.2 Hypertensive heart and chronic kidney disease with heart failure and with stage 5 chronic kidney disease, or end stage renal disease; E11.22 Type 2 diabetes mellitus with diabetic chronic kidney disease; N18.6 End stage renal disease; I50.9 Heart failure, unspecified; D63.1 Anemia in chronic kidney disease; G47.30 Sleep apnea, unspecified; I48.91 Unspecified atrial fibrillation; I49.5 Sick sinus syndrome; F32.9 Major depressive disorder, single episode, unspecified; Z85.46 Personal history of malignant neoplasm of prostate; Z88.2 Allergy status to sulfonamides; Z91.041 Radiographic dye allergy status; Z91.048 Other nonmedicinal substance allergy status; Z99.89 Dependence on other enabling machines and devices
CPT/HCPCS: 36901; C1725; C1769; J2997; J1200; J1720; Q9967

== ENCOUNTER 2020-01-02 10:00 | Emergency (ER) | payer MEDICARE ==
--- NOTE | 2020-01-02 10:42 | CT ---
EXAM: CT of the cervical spine without contrast HISTORY: Neck pain after fall COMPARISON: None TECHNIQUE: Multiple contiguous axial images were obtained in a CT of the cervical spine without contr ast. Sagittal and coronal reformats were performed. FINDINGS: The vertebral bodies demonstrate normal height and alignment without fracture or subluxatio n. Moderate degenerative changes are seen throughout cervical spine with intervertebral disc space narrowing and osteophyte formation. No prevertebral soft tissue swelling is seen. The posterior facets are well aligned. Normal alignment of the skull base with the cervical spine is seen. The lung apices and cervical soft tissues are unremarkable. IMPRESSION: No evidence of acute osseous abnormality of the cervical spine.
--- NOTE | 2020-01-02 11:18 | CT ---
CT HEAD WITHOUT CONTRAST: Date: 01/02/2020 INDICATION: Fall. No recent comparison exam. FINDINGS: There is cortical atrophy. Ventricles have normal size and position considering the degree of atrophy . There are mild to moderate chronic ischemic white matter changes. 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 There is no evidence of hemorrhage. There is no evidence of mass, edema, or acute cortical infarct. There is a mucus retention cyst type density in the floor of the right maxillary antrum measuring up to 1.2 cm. Mucosal edema in the lai of the right maxillary sinus. Paranasal sinuses and mastoids otherwise clear. Mild scalp swelling over the right frontal bone and orbit. IMPRESSION: 1. Chronic brain parenchymal changes as described consistent with age. No acute intracranial process . 2. Mucosal edema involving the right maxillary sinus as described. POS: AH
== END 2020-01-02 13:02 | disposition home or self-care (01) ==
LOC: ERS 10:00
DX: S00.01XA Abrasion of scalp, initial encounter (principal); I11.0 Hypertensive heart disease with heart failure; I50.9 Heart failure, unspecified; E11.9 Type 2 diabetes mellitus without complications; Z79.01 Long term (current) use of anticoagulants; W19.XXXA Unspecified fall, initial encounter
CPT/HCPCS: 70450; 72125; 93005